=== PATIENT | male | born 1960 | race Caucasian/White ===

== ENCOUNTER → 2017-01-21 | Day surgery (SDC) | payer OTHER ==
[~2017-01-21] VITALS: Ht 177.8 cm; Wt 84.4 kg
[~2017-01-21] MED LIST: ACETAMINOPHEN 1000 MG/100 ML VIAL IV SCH; BUPIVACAINE LIPOSOME PF 1.3% 20 ML VIAL INFIL ONE; CHLORHEXIDINE GLUCONATE 2 % 1 PACK (2 CLOTHS) TOPICAL PRN; FAMOTIDINE 20 MG/2 ML VIAL ONE; INSULIN HUMAN REGULAR 1,000 UNITS/10 ML VIAL SQ PRN; LACTATED RINGER'S 1000 ML IV PRN; LIDOCAINE 1%/EPINEPHrine 1:100,000 SOLN 50 ML VIAL ONE; METOPROLOL TARTRATE 25 MG TAB PO PRN; MIDAZOLAM HCL 2 MG/2 ML VIAL ONE; POVIDONE IODINE 5% (ANTISEPSIS KIT) 4 APPLICATIONS EACH NARE PRN; PROPOFOL 200 MG/20 ML AMP IV ONE; SODIUM CHLORID 0.9% 500 ML IV PRN; ceFAZolin 2 GM PREMIX 50 ML IV SCH
[2017-01-21 07:04] VITALS: BP 128/84; PULSE 78; RESP 18; TEMP 98; O2SAT 98
--- NOTE | 2017-01-21 10:42 | PD.OP ---
cc: Richie Alston MD Operative Report Date of Surgery: January 21, 2017 Preoperative Diagnosis: Right inguinal hernia Postoperative Diagnosis: Right inguinal hernia Procedure: Repair of right inguinal hernia with pro-silo worker mesh Anesthesia: Local/MAC Surgeon: Richie Alston Glassware Maker Demonstrator(s): Francine Oliver MS3 Operation and Findings: Operative findings: The patient was found to have a very large indirect hernia sac which was quite thickened and scarred into the surrounding tissues. The inguinal floor was basically intact with only a large defect at the internal ring. There is no evidence of incarcerated viscera. Operative procedure: The patient was brought to the operating room, and after satisfactory sedation by anesthesia, the abdomen was prepped and draped in usual sterile fashion. 1% lidocaine with epinephrine was used to infiltrate the skin for local anesthesia. A transverse right inguinal incision was made, carried down sharply through the subcutaneous tissue with the cautery being used for hemostasis. Vision was deepened to the external oblique fascia which was opened in the direction of its fibers down to and through the external ring. The underside of the fascia was cleaned and the spermatic cord was attempted to be isolated with a Alhaji drain. At that point the patient was found to have a very large indirect hernia sac which was quite lateral to where normal location would be. It was opened and dissected free from the cord structures without problem. The excess sac was amputated with the cautery and the defect sutured with a running 3-0 Vicryl suture. After reducing the sac back within the properitoneal space, the remainder of the inguinal floor was cleaned and a relaxing incision was made in the internal oblique fascia. The repair was then made by bringing the internal oblique fascia to the shelving edge of the inguinal ligament with interrupted 0 Vicryl sutures. The internal ring was thus re-created as well as repairing the inguinal floor. A piece of pro-silo worker mesh was cut to the appropriate shape and secured anterior to the repaired floor by pressing its posterior Vicryl hooks into the surrounding tissue. The mesh was secured to the pubis with a 0 Prolene and a second suture of 0 Prolene was placed between the mesh and the shelving edge of the inguinal ligament lateral to the internal ring. Hemostasis was checked for and found be satisfactory. 20 mL's of Exparel was infiltrated into the surrounding tissues for local anesthesia. The external oblique fascia was then harshly reapproximated with interrupted 3-0 Vicryl sutures. The subcutaneous tissues tissue was closed with interrupted 3-0 Vicryl suture and the skin closed with interrupted 4-0 PDS subcuticular stitches. Steri-Strips were applied and the patient was then awakened and taken from the operating room, in satisfactory condition, having tolerated the procedure without problem. Estimated blood loss was less than 10 mL's. The instrument, sponge, and needle counts were reported as being correct 2 at the end of the procedure. Richie Alston MD January 21, 2017 10:42
[2017-01-21 11:00] VITALS: BP 141/90; PULSE 87; RESP 16; TEMP 97.5; O2SAT 98
== END | disposition home or self-care (01) ==
LOC: HSDC 06:17
PROVIDERS: ATTEND Surgery
DX: K40.90 Unilateral inguinal hernia, without obstruction or gangrene, not specified as recurrent (principal)
CPT/HCPCS: 00830; 49505; C1781; C9290; J0131; J0690; J2250; J3010; J7120